=== PATIENT | female | born 1960 | race Caucasian/White ===

== ENCOUNTER → 2018-07-28 | Outpatient (CLI) | payer OTHER | LOC: M.ULTRA 07:27 | DX: R22.42 Localized swelling, mass and lump, left lower limb (principal); M79.89 Other specified soft tissue disorders ==

== ENCOUNTER → 2019-06-20 | Outpatient (CLI) | payer OTHER | LOC: M.ULTRA 13:57 | DX: R22.31 Localized swelling, mass and lump, right upper limb (principal) ==